=== PATIENT | female | born 1970 | race Caucasian/White ===

== ENCOUNTER 2017-05-14 13:45 | Inpatient (IN) | payer OTHER ==
[~2017-05-14] VITALS: Ht 165.1 cm; Wt 82.6 kg
[2017-05-14] MEDS ORDERED: SYNTHROID50 MCG (14:10)
[2017-05-14] MEDS ORDERED: LOSARTAN-HCTZ1 EACH (14:10)
== END 2017-05-24 07:30 | disposition designated cancer center or children's hospital (05) | DRG 176 ==
LOC: ER 13:45 → MEDI 05-15 09:02 → MEDJ 05-15 09:02
PROC: 3E0F7GC Introduction of Other Therapeutic Substance into Respiratory Tract, Via Natural or Artificial Opening (ICD-10-PCS; principal; 2017-05-15)
PROC: B54DZZZ Ultrasonography of Bilateral Lower Extremity Veins (ICD-10-PCS; 2017-05-15)
PROC: B246ZZZ Ultrasonography of Right and Left Heart (ICD-10-PCS; 2017-05-16)
PROC: B246ZZ4 Ultrasonography of Right and Left Heart, Transesophageal (ICD-10-PCS; 2017-05-16)
PROC: CB121ZZ Planar Nuclear Medicine Imaging of Lungs and Bronchi using Technetium 99m (Tc-99m) (ICD-10-PCS; 2017-05-16)
PROC: 4A12X4Z Monitoring of Cardiac Electrical Activity, External Approach (ICD-10-PCS; 2017-05-16)
PROC: B246ZZZ Ultrasonography of Right and Left Heart (ICD-10-PCS; 2017-05-22)
DX: I26.99 Other pulmonary embolism without acute cor pulmonale (principal); D68.62 Lupus anticoagulant syndrome; R09.02 Hypoxemia; M06.89 Other specified rheumatoid arthritis, multiple sites; I10 Essential (primary) hypertension; D69.59 Other secondary thrombocytopenia; E03.8 Other specified hypothyroidism; D15.1 Benign neoplasm of heart; I27.29 Other secondary pulmonary hypertension

== ENCOUNTER 2017-07-01 09:05 | Outpatient (CLI) | payer OTHER ==
[~2017-07-01 09:05] MED LIST: LOSARTAN-HCTZ1 EACH; SYNTHROID50 MCG
== END 2017-07-01 09:26 | disposition home or self-care (01) ==
LOC: LAB 09:05
DX: D69.6 Thrombocytopenia, unspecified (principal); D68.61 Antiphospholipid syndrome; D68.62 Lupus anticoagulant syndrome; D68.51 Activated protein C resistance; D68.312 Antiphospholipid antibody with hemorrhagic disorder; D68.59 Other primary thrombophilia; D68.8 Other specified coagulation defects; M05.29 Rheumatoid vasculitis with rheumatoid arthritis of multiple sites; D51.3 Other dietary vitamin B12 deficiency anemia; E06.3 Autoimmune thyroiditis; I10 Essential (primary) hypertension; D51.1 Vitamin B12 deficiency anemia due to selective vitamin B12 malabsorption with proteinuria; D51.0 Vitamin B12 deficiency anemia due to intrinsic factor deficiency

== ENCOUNTER → 2017-07-08 11:05 | Outpatient (CLI) | payer OTHER | END | disposition home or self-care (01) | LOC: LAB 11:05 | DX: D68.8 Other specified coagulation defects (principal) ==

== ENCOUNTER 2017-07-23 11:05 | Outpatient (CLI) | payer OTHER | END 2017-07-23 11:11 | disposition home or self-care (01) | LOC: LAB 11:05 | DX: D68.62 Lupus anticoagulant syndrome (principal) ==

== ENCOUNTER 2017-08-20 09:00 | Outpatient (CLI) | payer OTHER | END 2017-08-20 10:21 | disposition home or self-care (01) | LOC: LAB 09:00 | DX: I11.9 Hypertensive heart disease without heart failure (principal); E78.2 Mixed hyperlipidemia ==

== ENCOUNTER → 2017-09-09 06:37 | Outpatient (CLI) | payer OTHER | END | disposition home or self-care (01) | LOC: LAB 06:37 | DX: I26.09 Other pulmonary embolism with acute cor pulmonale (principal) ==

== ENCOUNTER 2017-09-11 08:39 | Outpatient (CLI) | payer OTHER | END 2017-09-11 08:47 | disposition home or self-care (01) | LOC: LAB 08:39 | DX: I48.2 Chronic atrial fibrillation (principal) ==

== ENCOUNTER 2017-09-18 08:05 | Outpatient (CLI) | payer OTHER | END 2017-09-18 08:19 | disposition home or self-care (01) | LOC: LAB 08:05 | DX: I48.2 Chronic atrial fibrillation (principal) ==

== ENCOUNTER → 2017-10-10 | Outpatient (CLI) | payer OTHER | END | disposition home or self-care (01) | LOC: LAB 08:39 | DX: D69.6 Thrombocytopenia, unspecified (principal); D68.61 Antiphospholipid syndrome; D68.62 Lupus anticoagulant syndrome; D68.51 Activated protein C resistance; D68.312 Antiphospholipid antibody with hemorrhagic disorder; D68.59 Other primary thrombophilia; D68.8 Other specified coagulation defects; M05.29 Rheumatoid vasculitis with rheumatoid arthritis of multiple sites; D51.3 Other dietary vitamin B12 deficiency anemia; E06.3 Autoimmune thyroiditis; D50.8 Other iron deficiency anemias; D51.8 Other vitamin B12 deficiency anemias; I10 Essential (primary) hypertension ==

== ENCOUNTER 2017-10-14 09:57 | Outpatient (CLI) | payer OTHER | END 2017-10-14 10:05 | disposition home or self-care (01) | LOC: LAB 09:57 | DX: D68.9 Coagulation defect, unspecified (principal) ==

== ENCOUNTER → 2017-11-18 | Outpatient (CLI) | payer OTHER | END | disposition home or self-care (01) | LOC: LAB 08:40 | DX: I48.2 Chronic atrial fibrillation (principal) ==

== ENCOUNTER 2017-12-10 07:35 | Outpatient (CLI) | payer OTHER | END 2017-12-10 07:48 | disposition home or self-care (01) | LOC: LAB 07:35 | DX: D68.61 Antiphospholipid syndrome (principal); I26.99 Other pulmonary embolism without acute cor pulmonale; D68.62 Lupus anticoagulant syndrome; D68.51 Activated protein C resistance; D69.6 Thrombocytopenia, unspecified; D68.312 Antiphospholipid antibody with hemorrhagic disorder; D68.59 Other primary thrombophilia; D68.8 Other specified coagulation defects; M05.29 Rheumatoid vasculitis with rheumatoid arthritis of multiple sites; D51.3 Other dietary vitamin B12 deficiency anemia; Z86.711 Personal history of pulmonary embolism; D50.8 Other iron deficiency anemias; D51.8 Other vitamin B12 deficiency anemias; I10 Essential (primary) hypertension; E55.9 Vitamin D deficiency, unspecified; K90.89 Other intestinal malabsorption ==

== ENCOUNTER 2017-12-16 08:52 | Outpatient (CLI) | payer OTHER | END 2017-12-16 08:53 | disposition home or self-care (01) | LOC: LAB 08:52 | DX: I11.9 Hypertensive heart disease without heart failure (principal); E78.2 Mixed hyperlipidemia; I48.2 Chronic atrial fibrillation ==

== ENCOUNTER 2018-01-15 07:49 | Outpatient (CLI) | payer OTHER | END 2018-01-15 08:01 | disposition home or self-care (01) | LOC: LAB 07:49 | DX: D68.8 Other specified coagulation defects (principal) ==

== ENCOUNTER 2018-01-15 08:26 | Outpatient (CLI) | payer OTHER | END 2018-01-15 08:35 | disposition home or self-care (01) | LOC: RAD 08:26 | DX: J44.1 Chronic obstructive pulmonary disease with (acute) exacerbation (principal) ==

== ENCOUNTER 2018-03-12 09:12 | Outpatient (CLI) | payer OTHER | END 2018-03-12 09:38 | disposition home or self-care (01) | LOC: LAB 09:12 | DX: I11.9 Hypertensive heart disease without heart failure (principal); I26.09 Other pulmonary embolism with acute cor pulmonale; E03.8 Other specified hypothyroidism; I82.619 Acute embolism and thrombosis of superficial veins of unspecified upper extremity; E11.9 Type 2 diabetes mellitus without complications; D68.8 Other specified coagulation defects; E50.9 Vitamin A deficiency, unspecified ==

== ENCOUNTER 2018-03-12 10:20 | Outpatient (CLI) | payer OTHER | END 2018-03-12 15:47 | disposition home or self-care (01) | LOC: MAMO-SONO 10:20 | DX: Z12.31 Encounter for screening mammogram for malignant neoplasm of breast (principal); N64.89 Other specified disorders of breast; I26.99 Other pulmonary embolism without acute cor pulmonale; D68.62 Lupus anticoagulant syndrome; D68.51 Activated protein C resistance; D69.6 Thrombocytopenia, unspecified; D68.8 Other specified coagulation defects; M05.29 Rheumatoid vasculitis with rheumatoid arthritis of multiple sites; D51.3 Other dietary vitamin B12 deficiency anemia; E06.3 Autoimmune thyroiditis; Z86.711 Personal history of pulmonary embolism ==

== ENCOUNTER → 2018-03-20 08:02 | Outpatient (CLI) | payer OTHER | END | disposition home or self-care (01) | LOC: LAB 08:02 | DX: I26.99 Other pulmonary embolism without acute cor pulmonale (principal); D68.62 Lupus anticoagulant syndrome; D69.6 Thrombocytopenia, unspecified; D68.8 Other specified coagulation defects; M05.29 Rheumatoid vasculitis with rheumatoid arthritis of multiple sites; D51.3 Other dietary vitamin B12 deficiency anemia; Z86.711 Personal history of pulmonary embolism; D50.8 Other iron deficiency anemias; D51.8 Other vitamin B12 deficiency anemias; I10 Essential (primary) hypertension; K90.89 Other intestinal malabsorption ==

== ENCOUNTER 2020-05-09 07:13 | Outpatient (CLI) | payer OTHER | END 2020-05-09 07:24 | disposition home or self-care (01) | LOC: TOM 07:13 | PROVIDERS: ATTEND Internal Medicine Gastroenterology | DX: R16.0 Hepatomegaly, not elsewhere classified (principal); K80.80 Other cholelithiasis without obstruction; K56.600 Partial intestinal obstruction, unspecified as to cause; Z12.11 Encounter for screening for malignant neoplasm of colon; Z86.010 Personal history of colon polyps; R16.1 Splenomegaly, not elsewhere classified ==

== ENCOUNTER 2020-05-19 07:20 | Outpatient (CLI) | payer OTHER | END 2020-05-19 07:26 | disposition home or self-care (01) | LOC: RAD 07:20 | PROVIDERS: ATTEND Internal Medicine Gastroenterology | DX: K80.80 Other cholelithiasis without obstruction (principal); N60.02 Solitary cyst of left breast; N60.01 Solitary cyst of right breast; Z12.31 Encounter for screening mammogram for malignant neoplasm of breast; N64.4 Mastodynia; N60.11 Diffuse cystic mastopathy of right breast; K21.9 Gastro-esophageal reflux disease without esophagitis; R10.11 Right upper quadrant pain; N64.59 Other signs and symptoms in breast ==

== ENCOUNTER 2020-05-27 06:43 | Outpatient (CLI) | payer OTHER | END 2020-05-27 06:49 | disposition home or self-care (01) | LOC: LAB 06:43 | PROVIDERS: ATTEND Obstetrics & Gynecology Maternal & Fetal Medicine | DX: D68.8 Other specified coagulation defects (principal); Z79.01 Long term (current) use of anticoagulants; K92.1 Melena; Z12.11 Encounter for screening for malignant neoplasm of colon; N92.1 Excessive and frequent menstruation with irregular cycle; E03.8 Other specified hypothyroidism ==

== ENCOUNTER 2020-12-24 10:47 | Outpatient (CLI) | payer OTHER | END 2020-12-24 10:56 | disposition home or self-care (01) | LOC: LAB 10:47 | PROVIDERS: ATTEND Internal Medicine Cardiovascular Disease | DX: D64.0 Hereditary sideroblastic anemia (principal); I10 Essential (primary) hypertension; E11.9 Type 2 diabetes mellitus without complications; E03.8 Other specified hypothyroidism; E78.2 Mixed hyperlipidemia; Z12.11 Encounter for screening for malignant neoplasm of colon ==

== ENCOUNTER 2021-01-09 14:45 | Emergency (ER) | payer OTHER ==
[~2021-01-09] VITALS: Ht 154.9 cm; Wt 74.8 kg
[2021-01-09] MEDS ORDERED: OPSUMIT10 MG PO (15:00)
[2021-01-09] MEDS ORDERED: BUDESONIDE-FO10.2 G1 IH (15:00)
[2021-01-09] MEDS ORDERED: DILTIAZEM HCL30 MG PO (15:00)
[2021-01-09] MEDS ORDERED: OMEPRAZOLE40 MG PO (15:00)
[2021-01-09] MEDS ORDERED: LEVO-T25 MCG PO (15:00)
[2021-01-09] MEDS ORDERED: WARFARIN SODIUM10 MG PO (15:01)
[2021-01-09] MEDS ORDERED: ADEMPAS2.5 MG PO (15:01)
== END 2021-01-09 19:26 | disposition home or self-care (01) ==
LOC: ER 14:45
DX: R06.02 Shortness of breath (principal); D68.8 Other specified coagulation defects; E03.8 Other specified hypothyroidism; R09.02 Hypoxemia; Z20.822 Contact with and (suspected) exposure to COVID-19; M06.89 Other specified rheumatoid arthritis, multiple sites; I26.99 Other pulmonary embolism without acute cor pulmonale; D69.49 Other primary thrombocytopenia; I27.0 Primary pulmonary hypertension; D68.312 Antiphospholipid antibody with hemorrhagic disorder

== ENCOUNTER 2021-03-27 09:47 | Outpatient (CLI) | payer OTHER ==
[~2021-03-27 09:47] MED LIST changes: +ADEMPAS2.5 MG PO; +BUDESONIDE-FO10.2 G1 IH; +DILTIAZEM HCL30 MG PO; +LEVO-T25 MCG PO; +OMEPRAZOLE40 MG PO; +OPSUMIT10 MG PO; +WARFARIN SODIUM10 MG PO
== END 2021-03-27 09:51 | disposition home or self-care (01) ==
LOC: LAB 09:47
PROVIDERS: ATTEND Internal Medicine Hematology & Oncology
DX: D50.8 Other iron deficiency anemias (principal); R79.89 Other specified abnormal findings of blood chemistry; I10 Essential (primary) hypertension; R74.02 Elevation of levels of lactic acid dehydrogenase [LDH]; K76.89 Other specified diseases of liver; D68.8 Other specified coagulation defects; I26.99 Other pulmonary embolism without acute cor pulmonale; D68.51 Activated protein C resistance; D69.6 Thrombocytopenia, unspecified; M05.29 Rheumatoid vasculitis with rheumatoid arthritis of multiple sites; D51.3 Other dietary vitamin B12 deficiency anemia; E06.3 Autoimmune thyroiditis; Z86.711 Personal history of pulmonary embolism; K90.89 Other intestinal malabsorption